=== PATIENT | male | born 1990 | race Caucasian/White ===

== ENCOUNTER 2024-05-23 11:40 | Emergency (ER) | payer OTHER, SELFPAY ==
--- NOTE | 2024-05-23 13:22 | ED.GENMED ---
History of Present Illness
General
Chief Complaint: Back Pain
Source: patient and family
Exam Limitations: none
Time Seen by Provider: 05/23/24 12:37
Nursing documentation reviewed up to this point in time: agreed with
History of Present Illness
History of Present Illness:
34 y/o M with h/o epilepsy
no meds
has very rare seizures, grand mal
he had one 2 weeks ago lasting a few seconds
no fall
but ever since he has midto1 loewr back pain midline
nonradiating worse with movement
no eakness/numbness/tingling
taking motrin 800 mg bid
pt went to urgent care today and had xryas of t and spine showing T7, T4, T3, T12, and L1 compression fxs
he has no weakness, trouble breathing, adominal pain
Past History
Past History
ED Past Medical History: Seizures
Social History
Tobacco: Non-smoker
Alcohol: None
Drug: None
Personal:
Living: with family
Review of Systems
Review of Systems
Allergies reviewed?: Yes
All Other Systems: Not applicable
Phy Exam
Physical Exam
Physical Exam:
GENERAL: Alert , in no apparent distress, comfortable at rest
HEAD: NCAT
NECK: no midline tenderness, active ROM intact, no paraspinal muscle tenderness;
CARDIAC: Regular rate and rhythm, no edema
LUNGS: Clear breath sounds bilaterally, no acute respiratory distress, no wheezes/rales/rhonchi
ABDOMEN: Soft, without focal tenderness, no r/g, no cvat, normal bowel sounds, nondistended
NEUROLOGICAL: Alert and oriented, no focal neuro deficits, CN intact, 5/5 strength, sensation intact, full strength/sensation/gait steady
SKIN: Warm and dry,
MUSCULOSKELETAL: No edema, well perfused.
Back: No midline tenderness, neg straight leg rasie b/l no swelling
PSYCH: Normal and appropriate interaction.
Course
Vital Signs
Initial and Last Documented VS:
Initial Vital Signs
Temp Pulse Resp Pulse Ox
98.4 F 72 116 96
05/23/24 11:45 05/23/24 11:45 05/23/24 11:45 05/23/24 11:45
Last Documented Vital Signs
Temp Pulse Resp BP Pulse Ox
98.4 F 59 20 127/87 98
05/23/24 11:45 05/23/24 13:27 05/23/24 13:27 05/23/24 13:27 05/23/24 13:27
MDM/Problems Addressed
Differential Diagnosis Includes:
comrpession fxs, back pain,
MDM/Problems Addressed:
34-year-old male with a history of epilepsy, very occasional seizures, last was 2 weeks ago which ever since he has been having pain in his mid to lower back. It is worse with flexion. He has tried Motrin 800 twice daily for several days. He has
not had any radicular symptoms, numbness tingling or weakness. He went to urgent care today where he had x-rays which showed compression fractures of T3 and 4, T12 and L1
Patient says he was told by the provider that he should come to the emergency department for an MRI. He has had no weakness numbness or tingling, incontinence. Patient has no history of malignancy. He has had no unexplained weight loss or fevers.
His previous workup for epilepsy was in [place]. He has been here for 6 months. He just got insurance and he does have an appointment with a new family doctor in 1 week and he is going to get a referral to neurology.
In the meantime he is requesting pain control. Case discussed with the ED attending. the patient was sent for urgent MRI however he does not have any clinical signs of cauda equina thus not justifying emergency MRI imaging today. It is something
that we will require a workup medically for why he has several compression fractures in his spine, however at this point would offer him pain control with vicodin prn and colace
nsaids
lidocaine patch
*Critical Care Note
Total Time (30-74mins, 75-104mins- exclusive of procedures): Not Applicable
ED Attending Note
-
Portions of this chart may have been created with voice recognition software.� Occasional wrong word or��sound alike� substitutions may have occurred due to the inherent limitations of voice recognition software.
Discharge Plan
Departure
Patient Disposition: Home (Routine Discharge)
Date of Disposition: 05/23/24
Time of Disposition: 13:31
Patient with high blood pressure during this ER visit?: No
Condition: Fair
Covid-19: Not Applicable
Discharge Problem:
Compression fracture
Instructions: Low Back Pain (DC)
Prescriptions:
New
hydrocodone-acetaminophen 5-325 mg tablet
1 tab PO Q8H PRN (Reason: Pain) Qty: 12 0RF
lidocaine 5 % adhesive patch,medicated
1 patch topical DAILY PRN (Reason: BACK PAIN) Qty: 15 0RF
docusate sodium [Col-Rite] 100 mg capsule
100 mg PO BID Qty: 30 0RF
ibuprofen 800 mg tablet
800 mg PO Q8H PRN (Reason: Pain) Qty: 20 0RF
Referrals:
Kenji Baeza MD [Active] - Follow up in 5-7 days
Masha Finn NP [Family Provider] - Follow up in 2-3 days
Activity Restrictions/Additional Instructions:
YOU NEED FURTHER EVALUATION BY YOUR NEW DOCTOR REGARDING YOUR SEIZURES AND YOUR BACK COMPRESSION FRACTURES
BUT FOR NOW CONTINUE MOTRIN 800 MG 2-3 TIMES A DAY
YOU CAN APPLY LIDOCAINE PATCH 12 HOURS ON 12 HOURS OFF FOR PAIN
FOR SEVERE PAIN YOU CAN TRY VICODIN EVERY 6 HOURS NEEDED
IT WILL MAKE YOU SLEEPY, NO DRIVING OR ALCOHOL
ONLY FOR SEVERE PAIN
TAKE COLACE TWICE A DAY FOR SOFTENING STOOL
RETURN FOR SEVERE PAIN, FEVER, WEAKNESS, NUMBNESS, INCONTINENCE OR ANY CONCERNS.
Interventions
Interventions:
*Risk Screen - Suicide Last Done: 05/23/24 12:35
*General Assessment Last Done: 05/23/24 12:35
*Neglect/Abuse Screening Last Done: 05/23/24 12:35
ED- Fall Risk Assessment Last Done: 05/23/24 12:35
*ED COVID-19 Vaccine History Last Done: 05/23/24 12:35
*Nursing Disposition Last Done: 05/23/24 13:52
ED-Musculoskeletal Assessment Last Done: 05/23/24 12:35
Discharge Date and Time
Discharge Date/Time: 05/23/24 13:53
Print Language: CHILEAN
[2024-05-23 13:27] VITALS: BP 127/87
== END 2024-05-23 13:53 | disposition home or self-care (01) ==
LOC: EMR 11:40
PROVIDERS: EMERGENCY PHYSICIAN Student in an Organized Health Care Education/Training Program; FAMILY PHYSICIAN Nurse Practitioner Adult Health
DX: M48.54XA Collapsed vertebra, not elsewhere classified, thoracic region, initial encounter for fracture (principal); M48.56XA Collapsed vertebra, not elsewhere classified, lumbar region, initial encounter for fracture; M54.9 Dorsalgia, unspecified; G40.909 Epilepsy, unspecified, not intractable, without status epilepticus
CPT/HCPCS: 99282

== ENCOUNTER 2025-02-27 14:18 | Emergency (ER) | payer OTHER, SELFPAY ==
[2025-02-27 14:21] VITALS: BP 130/88; BMI 28.8
[2025-02-27 14:37] LABS: % Basophils 0.5 % (0-2); % Immature Granulocytes 1.2 % (0-0.5); % Lymphocytes 34.6 % (20.5-51.1); % Monocytes 4.8 % (1.7-9.3); % Neutrophils 57.9 % (42.2-75.2); Absolute Basophils 0.1 10^3/uL (0-0.2); Absolute Eosinophils 0.1 10^3/uL (0-0.7); Absolute Immature Granulocytes 0.1 10^3/uL (0-0.05); Absolute Lymphocytes 3.3 10^3/uL (1.2-3.4); Absolute Monocytes 0.5 10^3/uL (0.1-0.6); Absolute Neutrophils 5.5 10^3/uL (1.4-6.5); Hemoglobin 14.2 g/dL (13.0-18.0); Mean Corp Hgb Conc. 34.6 g/dL (33.0-37.0); Mean Corpuscular Hgb 29.4 pg (27.0-31.0); Mean Corpuscular Volume 84.9 fL (80.0-94.0); Mean Platelet Volume 10.2 fL (7.4-10.4); Nucleated Red Blood Cells % 0 % (-); Platelet Count 208 10^3/uL (130-400); Red Blood Cell Count 4.83 10^6/uL (4.70-6.10); Red Cell Dist. Width 12.2 % (11.5-14.5); White Blood Cell Count 9.4 10^3/uL (4.8-10.8)
[2025-02-27 14:38] LABS: Glucose - Point of Care 109 mg/dl (70-99)
[2025-02-27 14:52] LABS: ALT (SGPT) 41 U/L (0-50); AST (SGOT) 23 U/L (17-59); Albumin 4.7 g/dl (3.5-5.0); Alkaline Phosphatase 69 U/L (38-126); Blood Urea Nitrogen 17 mg/dl (9-20); Calcium 9.7 mg/dl (8.4-10.2); Carbon Dioxide 21 mmol/L (22-30); Chloride 105 mmol/L (98-107); Estimated Creatinine Clearance 105 ml/min; Glucose 124 mg/dl (70-99); Potassium 4.9 mmol/L (3.5-5.1); Sodium 139 mmol/L (135-145); Total Bilirubin 0.6 mg/dl (0.2-1.3); Total Protein 7.2 g/dl (6.3-8.2); eGFR > 60.00
--- NOTE | 2025-02-27 14:56 | ED.GENMED ---
History of Present Illness
General
Chief Complaint: Seizure
Source: patient and spouse
Exam Limitations: none
Time Seen by Provider: 02/27/25 14:38
History of Present Illness
History of Present Illness:
34yoM with a history of epilepsy presenting via EMS with his and brother for evaluation after a seizure that occurred around 1 PM today. Patient is Nauruan speaking and history is obtained with the assistance of an lead mechanic. Patient was
standing in his kitchen when he started to experience posturing, generalized shaking, and unresponsiveness. Episode lasted about 20 seconds before resolving. was able to catch him so he did not fall to the ground. He denies any associated
incontinence or tongue biting. Patient is currently asymptomatic other than a mild headache. He is worried because he was told many years ago that he had an aneurysm in his brain. He denies any nausea, vomiting, fevers. No reported drug or
alcohol use. He admits to being stressed today which is one of his triggers.
He is not taking any antiepileptic medications. He was previously on Lamictal but continued to have seizures so stopped this about 7-8 years ago. He states he was doing very well and was seizure-free for several years which he attributed to CBD
oil but his seizures have become more frequent. This is his fourth seizure within the past year. He was seen by a neurologist in [place] in November of this year. He is hesitant to start new medications due to fear of side effects.
Past History
Past History
ED Past Medical History: Seizures
Social History
Tobacco: Non-smoker
Alcohol: None
Drug: None
Personal:
Living: with family
Phy Exam
General Physical Exam
General Presentation: well appearing and no apparent distress
General age: appears stated age
General Skin: warm and dry
General Habitus: normal
ENT Exam
ENT Exam: normocephalic and other (No nuchal rigidity )
Eye Exam
Eye Exam: PERRL and conjunctiva normal
Cardiovascular Exam
Cardiovascular Exam: regular rate/rhythm
Pulmonary Exam
Pulmonary Exam: lungs clear, no respiratory distress, no rales, no crackles, no rhonchi and no wheezing
Neurological Exam
Neurological Exam: alert
[place] Coma Scale
Eye Opening: Spontaneous
Verbal Response: Oriented
Motor Response: Obeys Commands
GCS Total Score: 15
Skin Exam
Skin Exam: normal color and warm/dry
Psychiatric Exam
Psychiatric Exam: normal mood/affect
Course
Orders/Labs/Results
Orders:
Orders
02/27/25 14:26
Complete Blood Count/With Diff Urgent
Comprehensive Metabolic Panel Urgent
02/27/25 14:54
CT Head W/o Iv Contrast Urgent
Comment:
Reason For Exam: headache, seizure
0.9% Sodium Chloride 1000 ml [Nss] 1,000 ml IV BOLUS
02/27/25 15:00
Electrocardiogram (*1) Urgent
Reason for Study: Other
Other Reason for Exam: seizure
EKG- Treatment ONCE
Abnormal Lab Results
02/27/25 02/27/25
14:26 14:36
Abs Immat Gran (auto) 0.1 H 10^3/uL
(0-0.05)
Immature Gran % 1.2 H %
(0-0.5)
Carbon Dioxide 21 L mmol/L
(22-30)
Glucose 124 H mg/dl
(70-99)
POC Glucose 109 H mg/dl
(70-99)
02/27/25 14:26
02/27/25 14:26
Vital Signs
Initial and Last Documented VS:
Initial Vital Signs
Temp Pulse Resp BP Pulse Ox
98.6 F 98 16 130/88 98
02/27/25 14:21 02/27/25 14:21 02/27/25 14:21 02/27/25 14:21 02/27/25 14:21
Last Documented Vital Signs
Temp Pulse Resp BP Pulse Ox
98.6 F 88 16 126/79 98
02/27/25 14:21 02/27/25 14:30 02/27/25 16:00 02/27/25 17:10 02/27/25 17:10
MDM/Problems Addressed
Differential Diagnosis Includes:
34yoM here after a seizure. Lasted 20 seconds. Hx of epilepsy not currently on medications. Now back to baseline. C/o mild headache. Reported history of a brain aneurysm. VSS. He is awake, alert, with a GCS of 15. No focal neuro deficits or
meningismus noted. Differential diagnosis includes: breakthrough seizure, uncontrolled epilepsy, electrolyte abnormality, doubt subarachnoid hemorrhage
Initial ED plan: Check CBC, CMP, EKG, and CT head. IV fluid bolus.
*EKG
Interpreted by ED Provider?: Yes
EKG Intrepretation Date: 02/27/25
Heart Rate: 81
Rate: normal
Rhythm: sinus
Chana: normal axis
Interval: normal interval
QRS Pattern: normal QRS
Ischemia: no ischemia
*Critical Care Note
Total Time (30-74mins, 75-104mins- exclusive of procedures): Not Applicable
Update Note
Update Note:
Labs overall unremarkable. EKG shows NSR without ectopy or ischemic changes. CT shows a small partially calcified R temporoparietal lobe mass measuring 1.4cm. Radiology recommending MRI for further evaluation. Findings discussed with patient, ,
and brother. Copy of radiology report and disc with images provided. Advised f/u with PCP/neurology to schedule this. He was also encouraged to discuss starting antiepileptic medications with his neurologist. He was advised not to drive and [employer]
form completed and faxed. ED return precautions discussed. He was discharged in stable condition.
ED Attending Note
-
Portions of this chart may have been created with voice recognition software.� Occasional wrong word or��sound alike� substitutions may have occurred due to the inherent limitations of voice recognition software.
Discharge Plan
Departure
Patient Disposition: Home (Routine Discharge)
Date of Disposition: 02/27/25
Time of Disposition: 16:36
Patient with high blood pressure during this ER visit?: No
Discharge Problem:
Seizure, Brain lesion
Instructions: Seizures in adults - ED discharge instructions
Prescriptions:
No Action
hydrocodone-acetaminophen 5-325 mg tablet
1 tab PO Q8H PRN (Reason: Pain) Qty: 12 0RF
lidocaine 5 % adhesive patch,medicated
1 patch topical DAILY PRN (Reason: BACK PAIN) Qty: 15 0RF
docusate sodium [Col-Rite] 100 mg capsule
100 mg PO BID Qty: 30 0RF
ibuprofen 800 mg tablet
800 mg PO Q8H PRN (Reason: Pain) Qty: 20 0RF
Referrals:
Masha Finn NP [Family Provider] -
Activity Restrictions/Additional Instructions:
No driving or operating heavy machinery for 90 days.
Please follow-up with your neurologist to discuss starting medications. You will need to have an MRI of your brain for the abnormal finding on your CT scan.
Return to the ER with any new or worsening symptoms.
Interventions
Interventions:
*Risk Screen - Suicide Last Done: 02/27/25 14:21
*General Assessment Last Done: 02/27/25 14:21
*Neglect/Abuse Screening Last Done: 02/27/25 14:21
*ED- Fall Risk Assessment Last Done: 02/27/25 14:21
*ED COVID-19 Vaccine History Last Done: 02/27/25 14:21
*Nursing Disposition Last Done: 02/27/25 17:10
ED- Cardiac Assessment Last Done: 02/27/25 14:29
ED- Neurological Assessment Last Done: 02/27/25 14:29
ED- Pulmonary Assessment Last Done: 02/27/25 14:29
Discharge Date and Time
Discharge Date/Time: 02/27/25 17:11
Print Language: YORUBA
[2025-02-27] MEDS: NSS 1000 IV (14:59)
[2025-02-27 17:10] VITALS: BP 126/79
== END 2025-02-27 17:11 | disposition home or self-care (01) ==
LOC: EMR 14:18
PROVIDERS: EMERGENCY PHYSICIAN Emergency Medicine; FAMILY PHYSICIAN Nurse Practitioner Adult Health
DX: R56.9 Unspecified convulsions (principal); G93.9 Disorder of brain, unspecified
CPT/HCPCS: 96360; 99284; 70450; 80053; 82962; 85025; 93005